=== PATIENT | female | born 1940 | race African-American/Black ===

== ENCOUNTER 2018-05-13 20:16 | Emergency (ER) | payer MEDICARE, OTHER ==
--- NOTE | 2018-05-14 01:31 | RADIOLOGY REPORT (SQ) ---
EXAM DESCRIPTION: CT HEAD WITHOUT IV CONTRAST COMPLETED DATE/TME: 05/14/2018 01:02 CLINICAL HISTORY: 78 years, Female, trauma COMPARISON: None Available. Technique: Contiguous axial images of the brain were obtained without the administration of intravenous contrast. Coronal and sagittal reformats obtained and reviewed. This exam was performed according to our departmental dose-optimization program which includes use of Automated Exposure Control, adjustment of the mA and/or kV according to patient size and/or use of iterative reconstruction technique. Findings: Brain: No hemorrhage. No territorial infarct. No mass effect. No herniation. Ventricles: Within normal limits for patient's age. Bones: No acute osseous abnormality. Paranasal sinuses: Unremarkable. Mastoid air cells: Unremarkable. Soft tissues: Soft tissue swelling and hematoma to the high right parietal scalp.. IMPRESSION: No acute intracranial abnormalities.
--- NOTE | 2018-05-14 01:38 | RADIOLOGY REPORT (SQ) ---
EXAM DESCRIPTION: CT MAXILLOFACIAL WITHOUT IV CONTRAST COMPLETED DATE/TME: 05/14/2018 01:08 CLINICAL HISTORY: 78 years, Female, trauma COMPARISON: None. TECHNIQUE: Axial CT images of the facial bones were obtained without contrast. Sagittal and coronal reformats were performed. DLP 590 Images stored on PACS. All CT scanners at this facility use dose modulation, iterative reconstruction, and/or weight based dosing when appropriate to reduce radiation dose to as low as reasonably achievable (ALARA). [facility]: Dose Right [facility]: CareDose [facility]: Dose Right [facility]: Teradose 4D [facility]: [employer] LIMITATIONS: None. FINDINGS: Subcutaneous: Mild soft tissues swelling along the central forehead Globes: Unremarkable. No retro-orbital hematoma. Orbits: Intact. Mandible: Intact. Maxilla: Intact. Nasal bones/septum: Intact. Zygomatic arches: Intact. Paranasal sinuses: There is mild mucosal thickening of the right maxillary sinus IMPRESSION: No acute fracture or dislocation. TECHNICAL DOCUMENTATION: Quality ID # 436: Final reports with documentation of one or more dose reduction techniques (e.g., Automated exposure control, adjustment of the mA and/or kV according to patient size, use of iterative reconstruction technique) copyright 2010 [employer] [facility]- All Rights Reserved
--- NOTE | 2018-05-14 01:40 | RADIOLOGY REPORT (SQ) ---
CLINICAL HISTORY: trauma COMPARISON: None. TECHNIQUE: XR KNEE 4 OR MORE VIEWS 05/14/2018 1:08 AM CARE TECH FINDINGS: There is no fracture. There is moderate narrowing of the medial knee compartment. There is severe narrowing of the patellofemoral compartment. There is prepatellar and anterior knee soft tissue swelling. IMPRESSION: Anterior soft tissue swelling without fracture.
[2018-05-14] MEDS ORDERED: LIDOCAINE 1%/EPINEPHRINE INJ 20 ML VIAL ONE (03:06)
[2018-05-14] MEDS ORDERED: LIDOCAINE 1%/EPINEPHRINE INJ 20 ML VIAL INJ ONE (03:06)
--- NOTE | 2018-05-14 03:42 | ER Document Report ---
ED General - General Chief Complaint: Fall Stated Complaint: FALL Time Seen by Provider: 05/14/18 01:01 Notes: Patient is a pleasant 78-year-old female presents with complaint of a fall. Patient says that she is always a little bit unsteady on her feet and her legs tend to give out. She said this happened today when she is walking and she fell and hit her head. No loss of consciousness. She is on blood thinners. She has a large cast to her scalp which has had some bleeding. She also at the right side of her face and has some swelling along the right side of her face. She says she has bad knees. She feels that her right nasal bit worse since falling. She was able to stand and walk after the incident. No chest pain. No shortness of breath. No back or neck pain. No other complaints at this time. - Related Data Allergies/Adverse Reactions: No Known Allergies Allergy (Unverified 05/13/18 20:22) Past Medical History - Social History Smoking Status: Unknown if Ever Smoked Chew tobacco use (# tins/day): No Frequency of alcohol use: None Drug Abuse: None Family History: Reviewed & Not Pertinent Patient has suicidal ideation: No Patient has homicidal ideation: No Renal/ Medical History: Denies: Hx Peritoneal Dialysis Review of Systems - Review of Systems Notes: My Normal Review Basic REVIEW OF SYSTEMS: CONSTITUTIONAL : Denies fever, chills, or sweats. Denies recent illness. EENT: laceration to scalp. CARDIOVASCULAR: Denies chest pain. RESPIRATORY: Denies cough, cold, or chest congestion. Denies shortness of breath, difficulty breathing, or wheezing. GASTROINTESTINAL: Denies abdominal pain. Denies nausea, vomiting, or diarrhea. Denies constipation. Last BM: MUSCULOSKELETAL: Right knee pain SKIN: Denies rash or skin lesions. NEUROLOGICAL: Denies altered mental status or loss of consciousness. Denies headache. Denies weakness or paralysis or loss of use of either side. Denies problems with gait or speech. Denies sensory or motor loss. ALL OTHER SYSTEMS REVIEWED AND NEGATIVE. Physical Exam - Vital signs Vitals: Temp Pulse Resp BP Pulse Ox 98.2 F 71 20 146/57 H 98 05/13/18 20:26 05/13/18 20:26 05/13/18 20:26 05/13/18 20:26 05/13/18 20:26 - Notes Notes: General Appearance: Well nourished, alert, cooperative, no acute distress, no obvious discomfort. Vitals: reviewed, See vital signs table. Head: Large 12 cm laceration in a semilunar shape going from the superior aspect of the scalp around down to the right judaism region of the scalp. Eyes: PERRL, EOMI, Conjuctiva clear Mouth: No decreasd moisture Neck: Supple, no neck tenderness, No thyromegaly Lungs: No wheezing, No rales, No rhonci, No accessory muscle use, good air exchange bilaterally. Heart: Normal rate, Regular rythm, No murmur, no rub Abdomen: Normal BS, soft, No rigidity, No abdominal tenderness, No guarding, no rebound, no abdominal masses, no organomegaly Extremities: strength 5/5 in all extremities, good pulses in all extremities, all 4 extremities are nontender except for some increasing swelling some pain to the right knee. She does have good range of motion of the right knee., no edema. Skin: warm, dry, appropriate color, no rash Neuro: speech clear, oriented x 3, normal affect, responds appropriately to questions. Cranial nerves 2 through 12 are intact. Patient is able move all 4 extremities on her own. Course - Re-evaluation Re-evalutation: 05/14/18 08:44 CT scan of the head and face are negative. Knee x-ray is negative. I did irrig ate and clean the wound with peroxide and saline. Wound was gaping and difficult to bring together with warren long therefore I did do for underlying subcutaneous sutures to take tension off the wound. I was then able to apply 12 warren to finish closing the wound. Patient tolerated procedure well. Patient will be discharged home with instructions to return in 1 week first staple remover. She is to return earlier if she has any redness or swelling or increasing pain to the wound. Patient agrees with plan and will be discharged home. Dictation of this chart was performed using voice recognition software; therefore, there may be some unintended grammatical errors. - Vital Signs Vital signs: Temp Pulse Resp BP Pulse Ox 97.9 F 70 20 142/69 H 99 05/14/18 04:32 05/14/18 04:32 05/14/18 04:32 05/14/18 04:32 05/14/18 04:32 Discharge - Discharge Clinical Impression: Laceration Condition: Good Disposition: HOME, SELF-CARE Additional Instructions: LACERATION CARE: Your laceration has been sutured to keep the skin edges aligned during healing. The time of suture removal depends on the nature and location of your cut. Please follow the care instructions the doctor has outlined for you and return for further care, according to the schedule you've been given. Keep the wound and dressing clean. Unless you were told otherwise, you may shower daily, blotting the wound dry with a clean, unused towel. At other times, If the dressing gets wet or blood soaked, remove it and blot the wound dry, then reapply a new dressing. Unless you were instructed otherwise, dr delilah should be changed at least daily. If any signs of infection occur (swelling, redness, drainage, increasing tenderness, red streaks, tender lumps in the armpit or groin above the laceratio n, or fever), see the doctor immediately. FOLLOW-UP CARE: Your sutures should be removed in __7___ days. To facilitate a timely removal of your sutures, you may return [facility]. You do not need to call for an appointment, but the best time to come in for suture removal is early in the morning. If you have been referred to another physician for follow-up care, call that physicians office for an appointment as you were instructed. If you experience a significant change in your laceration, or if you are concerned there may be an infection (swelling, redness, drainage, increasing tenderness, red streaks, tender lumps in the armpit or groin above the laceration, or fever), return to the Emergency Department immediately re-evaluation. You have 12 warren and 4 dissolvable sutures. The warren must be removed in 1 week. Please clean every day with soap and water. Referrals: CORIN YANCEY MD [Primary Care Provider] - Follow up as needed
[2018-05-14 04:33] VITALS: BP 142/69
== END 2018-05-14 04:33 | disposition home or self-care (01) ==
LOC: ER 20:16
DX: S01.01XA Laceration without foreign body of scalp, initial encounter (principal); M25.561 Pain in right knee; M79.89 Other specified soft tissue disorders; W19.XXXA Unspecified fall, initial encounter; Y93.01 Activity, walking, marching and hiking; R26.81 Unsteadiness on feet; Z79.01 Long term (current) use of anticoagulants
CPT/HCPCS: 70450; 70486; 99284

== ENCOUNTER 2018-05-21 05:56 | Emergency (ER) | payer MEDICARE, OTHER ==
[2018-05-21 06:01] VITALS: BP 142/53
--- NOTE | 2018-05-21 06:28 | ER Document Report ---
ED General - General Chief Complaint: Suture Removal Stated Complaint: STITCHES REMOVAL Time Seen by Provider: 05/21/18 06:08 TRAVEL OUTSIDE OF THE [place] IN LAST 30 DAYS: No - HPI Patient complains to provider of: Staple removal Notes: Patient coming in for evaluation of staple removal patient 7 days ago had a fall head internal sutures and warren placed on laceration to the right parietal temporal region. Patient states she has been cleaning the wound daily. Otherwise no other complaints. - Related Data Allergies/Adverse Reactions: No Known Allergies Allergy (Unverified 05/13/18 20:22) Past Medical History - Social History Smoking Status: Unknown if Ever Smoked Family History: Reviewed & Not Pertinent Renal/ Medical History: Denies: Hx Peritoneal Dialysis Review of Systems - Review of Systems Constitutional: Other - Staple removal EENT: No symptoms reported Cardiovascular: No symptoms reported Respiratory: No symptoms reported Gastrointestinal: No symptoms reported Genitourinary: No symptoms reported Female Genitourinary: No symptoms reported Musculoskeletal: No symptoms reported Skin: No symptoms reported Hematologic/Lymphatic: No symptoms reported Neurological/Psychological: No symptoms reported -: Yes All other systems reviewed and negative Physical Exam - Vital signs Vitals: Temp Pulse Resp BP Pulse Ox 97.9 F 62 16 142/53 H 99 05/21/18 06:00 05/21/18 06:00 05/21/18 06:00 05/21/18 06:00 05/21/18 06:00 Interpretation: Normal - General General appearance: Appears well, Alert - HEENT Head: Normocephalic. No: Atraumatic - Multiple warren to the right parietal region well-healed appropriate for removal Eyes: Normal Pupils: PERRL - Respiratory Respiratory status: No respiratory distress Chest status: Nontender Breath sounds: Normal Chest palpation: Normal - Cardiovascular Rhythm: Regular Heart sounds: Normal auscultation Murmur: No - Abdominal Inspection: Normal Distension: No distension Bowel sounds: Normal Tenderness: Nontender Organomegaly: No organomegaly - Back Back: Normal, Nontender - Extremities General upper extremity: Normal inspection, Nontender, Normal color, Normal ROM, Normal temperature General lower extremity: Normal inspection, Nontender, Normal color, Normal ROM, Normal temperature, Normal weight bearing. No: Estrellita's sign - Neurological Neuro grossly intact: Yes Cognition: Normal Orientation: AAOx4 Arron Coma Scale Eye Opening: Spontaneous [place] Coma Scale Verbal: Oriented [place] Coma Scale Motor: Obeys Commands [place] Coma Scale Total: 15 Speech: Normal Motor strength normal: LUE, RUE, LLE, RLE Sensory: Normal - Psychological Associated symptoms: Normal affect, Normal mood - Skin Skin Temperature: Warm Skin Moisture: Dry Skin Color: Normal Course - Re-evaluation Re-evalutation: 05/21/18 06:38 [place] were removed with no complication patient will be discharged home wound care instructions were given to the patient verbally and in written form. - Vital Signs Vital signs: Temp Pulse Resp BP Pulse Ox 97.9 F 62 16 142/53 H 99 05/21/18 06:00 05/21/18 06:00 05/21/18 06:00 05/21/18 06:00 05/21/18 06:00 Discharge - Discharge Clinical Impression: Removal of staple Condition: Good Disposition: HOME, SELF-CARE Instructions: Staple Removal ([facility]) Additional Instructions: Please continue to keep the wound clean and dry. Follow-up with your primary care physician as needed return to the ER for any other concerns. Referrals: CORIN YANCEY MD [Primary Care Provider] - Follow up as needed
== END 2018-05-21 06:50 | disposition home or self-care (01) ==
LOC: ER 05:56
DX: S01.01XD Laceration without foreign body of scalp, subsequent encounter (principal); X58.XXXD Exposure to other specified factors, subsequent encounter

== ENCOUNTER 2018-11-30 13:05 | Emergency (ER) | payer MEDICARE, OTHER ==
--- NOTE | 2018-11-30 14:17 | ER Document Report ---
ED Medical Screen (RME) - General Chief Complaint: Dizziness Stated Complaint: NAUSEA/VOMITING Time Seen by Provider: 11/30/18 14:10 Primary Care Provider: CORIN YANCEY MD [Primary Care Provider] - Follow up as needed Mode of Arrival: Wheelchair Information source: Patient Notes: Patient states she has had a increase in her dizziness and nausea and vomiting for the last 3 days. She has a long history of vertigo. She takes meclizine but this is not helped for the last several days. She was picked up by EMS and given Zofran which she states has helped some but she is still very dizzy. Patient is alert oriented respirations regular and unlabored speaking in full sentences. She states she is also losing weight due to the nausea and vomiting. I have greeted and performed a rapid initial assessment of this patient. A comprehensive ED assessment and evaluation of the patient, analysis of test results and completion of medical decision making process will be conducted by an additional ED providers. Dictation of this chart was performed using voice recognition software; therefore, there may be some unintended grammatical errors. TRAVEL OUTSIDE OF THE [place] IN LAST 30 DAYS: No - Related Data Allergies/Adverse Reactions: lisinopril [From Prinivil] Allergy (Verified 11/30/18 14:01) Past Medical History - Social History Chew tobacco use (# tins/day): No Frequency of alcohol use: None Drug Abuse: None - Past Medical History Cardiac Medical History: Reports: Hx Congestive Heart Failure Endocrine Medical History: Reports: Hx Diabetes Mellitus Type 2 Renal/ Medical History: Denies: Hx Peritoneal Dialysis Past Surgical History: Reports: Hx Orthopedic Surgery Physical Exam - Vital signs Vitals: Temp Pulse Resp BP Pulse Ox 98.1 F 66 14 129/53 H 98 11/30/18 13:55 11/30/18 13:55 11/30/18 13:55 11/30/18 13:55 11/30/18 13:55 Course - Vital Signs Vital signs: Temp Pulse Resp BP Pulse Ox 98.1 F 66 14 129/53 H 98 11/30/18 13:55 11/30/18 13:55 11/30/18 13:55 11/30/18 13:55 11/30/18 13:55 Doctor's Discharge - Discharge Referrals: CORIN YANCEY MD [Primary Care Provider] - Follow up as needed
[2018-11-30 14:52] LABS: ABSOLUTE BASOPHILS # (AUTO) 0.1 10^3/uL (0.0-0.2); ABSOLUTE LYMPHOCYTES (AUTO) 1.2 10^3/uL (0.5-4.7); ABSOLUTE MONOCYTES (AUTO) 0.4 10^3/uL (0.1-1.4); ABSOLUTE NEUT (AUTO) 9.6 10^3/uL (1.7-8.2); BASOPHILS % (AUTO) 0.7 % (0-2); EOSINOPHILS % (AUTO) 0.1 % (0-6); HEMATOCRIT 43.1 % (36.0-47.0); HEMOGLOBIN 14.7 g/dL (12.0-15.5); LYMPHOCYTES % (AUTO) 10.4 % (13-45); MEAN CORPUSCULAR HEMOGLOBIN 29.2 pg (27.0-33.4); MEAN CORPUSCULAR HGB CONC 34.1 g/dL (32.0-36.0); MEAN CORPUSCULAR VOLUME 86 fl (80-97); MONOCYTES % (AUTO) 3.8 % (3-13); PLATELET COUNT 465 10^3/uL (150-450); RED BLOOD COUNT 5.03 10^6/uL (3.72-5.28); RED CELL DISTRIBUTION WIDTH 13.8 % (11.5-14.0); TOTAL CELLS COUNTED % (AUTO) 100 %; WHITE BLOOD COUNT 11.3 10^3/uL (4.0-10.5)
[2018-11-30 15:00] LABS: APPEARANCE,URINE CLEAR; BILIRUBIN,URINE NEGATIVE (NEGATIVE); COLOR,URINE YELLOW; GLUCOSE, URINE NEGATIVE (NEGATIVE); KETONES,URINE TRACE mg/dL (NEGATIVE); LEUKOCYTE ESTERASE,URINE NEGATIVE (NEGATIVE); NITRITE,URINE NEGATIVE (NEGATIVE); PROTEIN,URINE NEGATIVE (NEGATIVE); URINE SPECIFIC GRAVITY 1.013; UROBILINOGEN,URINE NEGATIVE mg/dL (<2.0)
--- NOTE | 2018-11-30 15:07 | RADIOLOGY REPORT (SQ) ---
EXAM DESCRIPTION: CT HEAD WITHOUT COMPLETED DATE/TIME: 11/30/2018 2:52 pm REASON FOR STUDY: Increase in vertigo with nausea and vomiting COMPARISON: 05/14/2018 TECHNIQUE: Axial images acquired through the brain without intravenous contrast. Images reviewed wi th bone, brain and subdural windows. Additional sagittal and coronal reconstructions were generated. Images stored on PACS. All CT scanners at this facility use dose modulation, iterative reconstruction, and/or weight based d osing when appropriate to reduce radiation dose to as low as reasonably achievable (ALARA). [facility]: Dose Right [facility]: CareDose [facility]: Dose Right [facility]: Teradose 4D [facility]: [employer] RADIATION DOSE: 1043 mGy cm LIMITATIONS: None. FINDINGS: VENTRICLES: Normal size and contour. CEREBRUM: No masses. No hemorrhage. No midline shift. No evidence for acute infarction. Few scatte red areas of low density in the white matter most likely chronic small vessel ischemic changes. CEREBELLUM: No masses. No hemorrhage. No alteration of density. No evidence for acute infarction. EXTRAAXIAL SPACES: No fluid collections. No masses. ORBITS AND GLOBE: No intra- or extraconal masses. Normal contour of globe without masses. CALVARIUM: No fracture. PARANASAL SINUSES: No fluid or mucosal thickening. SOFT TISSUES: No mass or hematoma. OTHER: No other significant finding. IMPRESSION: No acute intracranial pathology. Consider MRI to more sensitively evaluate for acute di ffusion restricting infarction if suspected. EVIDENCE OF ACUTE STROKE: NO. COMMENT: Quality ID # 436: Final reports with documentation of one or more dose reduction techniques (e.g., Automated exposure control, adjustment of the mA and/or kV according to patient size, use of iterative reconstruction technique) TECHNICAL DOCUMENTATION: JOB ID: [id number] 2333 [employer]- All Rights Reserved Reading location - IP/workstation name: [email or web address]
[2018-11-30 16:50] LABS: ALANINE AMINOTRANSFERASE 28 U/L (9-52); ALBUMIN 4.5 g/dL (3.5-5.0); ALKALINE PHOSPHATASE 67 U/L (38-126); ANION GAP 13 (5-19); ASPARTATE AMINO TRANSFERASE 24 U/L (14-36); BILIRUBIN,DIRECT 0.2 mg/dL (0.0-0.4); BILIRUBIN,TOTAL 0.7 mg/dL (0.2-1.3); BLOOD UREA NITROGEN 17 mg/dL (7-20); CALCIUM 9.9 mg/dL (8.4-10.2); CARBON DIOXIDE 31 mmol/L (22-30); CHLORIDE 90 mmol/L (98-107); GLUCOSE 120 mg/dL (75-110); TOTAL PROTEIN 7.4 g/dL (6.3-8.2)
--- NOTE | 2018-11-30 20:51 | ER Document Report ---
ED Dizziness/Weakness - General Chief Complaint: Dizziness Stated Complaint: NAUSEA/VOMITING Time Seen by Provider: 11/30/18 14:10 Primary Care Provider: CORIN YANCEY MD [Primary Care Provider] - Follow up as needed Mode of Arrival: Wheelchair Notes: 78-year-old female patient emergency department chief complaint of persistent vertigo. Patient has been seen by her regular doctor. Has been on meclizine as well as a bunch of other medications. Continues to have persistent dizziness. Seems to be worse with movement. Has tried meclizine but states that it makes her want to throw up so has not been taking it. Family members are concerned because she has had weight loss and does not want to eat. Is supposed to have an endoscopy done shortly. Patient denies any chest pain. Denies any shortness of breath. Denies any other major issues at this time. TRAVEL OUTSIDE OF THE [place] IN LAST 30 DAYS: No - HPI Patient complains to provider of: Dizziness, Vertigo Onset/Duration: Gradual, Worse Quality of pain: No pain Severity: Moderate Pain Level: Denies Context: Vertigo Associated symptoms: Nausea, Vertigo, Vomiting, Weak all over - Related Data Allergies/Adverse Reactions: lisinopril [From Prinivil] Allergy (Verified 11/30/18 14:01) Past Medical History - General Information source: Patient - Social History Smoking Status: Never Smoker Chew tobacco use (# tins/day): No Frequency of alcohol use: None Drug Abuse: None Lives with: Family Family History: Reviewed & Not Pertinent Patient has suicidal ideation: No Patient has homicidal ideation: No - Past Medical History Cardiac Medical History: Reports: Hx Congestive Heart Failure Endocrine Medical History: Reports: Hx Diabetes Mellitus Type 2 Renal/ Medical History: Denies: Hx Peritoneal Dialysis Past Surgical History: Reports: Hx Orthopedic Surgery Review of Systems - Review of Systems Notes: Constitutional: denies: Chills, Diaphoresis, -Fever, +Malaise, +Weakness EENT: denies: Eye discharge, Blurred vision, Tearing, Double vision, Nose congestion, Nose discharge, Throat swelling, Mouth pain Cardiovascular: denies: Palpitations, Heart racing, Orthopnea, Dyspnea, Chest pain Respiratory: denies: Cough, Hurts to breathe, Wheezing, Shortness of breath Gastrointestinal: denies: Abdominal pain, Diarrhea, +Nausea, +Vomiting, -Black stools, -bright red blood in stool Genitourinary: denies: Burning, Dysuria, Discharge, Frequency, Flank pain, Hematuria Musculoskeletal: denies: Joint pain, Joint swelling, Muscle pain, Muscle stiffness, back pain Hematologic/Lymphatic: denies: Anemia, Easy bleeding, Easy bruising, Blood clots Neurological/Psychological: denies: Confusion, Dementia, Depression, Loss of consciousness, + diziness Skin: No lesions, no masses, no skin breakdown, no abscesses Physical Exam - Vital signs Vitals: Temp Pulse Resp BP Pulse Ox 98.1 F 66 14 129/53 H 98 11/30/18 13:55 11/30/18 13:55 11/30/18 13:55 11/30/18 13:55 11/30/18 13:55 Interpretation: Normal - General General appearance: Appears well, Alert - HEENT Head: Normocephalic, Atraumatic Eyes: Normal Pupils: PERRL - Respiratory Respiratory status: No respiratory distress Chest status: Nontender Breath sounds: Normal Chest palpation: Normal - Cardiovascular Rhythm: Regular Heart sounds: Normal auscultation Murmur: No - Abdominal Inspection: Normal Distension: No distension Bowel sounds: Normal Tenderness: Nontender Organomegaly: No organomegaly - Back Back: Normal, Nontender - Extremities General upper extremity: Normal inspection, Nontender, Normal color, Normal ROM, Normal temperature General lower extremity: Normal inspection, Nontender, Normal color, Normal ROM, Normal temperature, Normal weight bearing. No: Estrellita's sign - Neurological Neuro grossly intact: Yes Cognition: Normal Orientation: AAOx4 [place] Coma Scale Eye Opening: Spontaneous [place] Coma Scale Verbal: Oriented [place] Coma Scale Motor: Obeys Commands Arron Coma Scale Total: 15 Speech: Normal Motor strength normal: LUE, RUE, LLE, RLE Sensory: Normal Notes: Patient does seem to be more dizzy when she sits up but does not have any nystagmus. - Psychological Associated symptoms: Normal affect, Normal mood - Skin Skin Temperature: Warm Skin Moisture: Dry Skin Color: Normal Course - Re-evaluation Re-evalutation: 11/30/18 20:51 Laboratory 11/30/18 11/30/18 11/30/18 14:30 14:30 14:30 WBC 11.3 H RBC 5.03 Hgb 14.7 Hct 43.1 MCV 86 MCH 29.2 MCHC 34.1 RDW 13.8 Plt Count 465 H Seg Neutrophils % 85.0 H Lymphocytes % 10.4 L Monocytes % 3.8 Eosinophils % 0.1 Basophils % 0.7 Absolute Neutrophils 9.6 H Absolute Lymphocytes 1.2 Absolute Monocytes 0.4 Absolute Eosinophils 0.0 Absolute Basophils 0.1 Sodium Cancelled Potassium Cancelled Chloride Cancelled Carbon Dioxide Cancelled Anion Gap Cancelled BUN Cancelled Creatinine Cancelled Est GFR ( Amer) Cancelled Est GFR (Non-Af Amer) Cancelled Glucose Cancelled Calcium Cancelled Total Bilirubin Cancelled Direct Bilirubin Cancelled Neonat Total Bilirubin Cancelled Neonat Direct Bilirubin Cancelled Neonat Indirect Bili Cancelled AST Cancelled ALT Cancelled Alkaline Phosphatase Cancelled Troponin I Total Protein Cancelled Albumin Cancelled Urine Color YELLOW Urine Appearance CLEAR Urine pH 6.0 Ur Specific Garrett 1.013 Urine Protein NEGATIVE Urine Glucose (UA) NEGATIVE Urine Ketones TRACE H Urine Blood SMALL H Urine Nitrite NEGATIVE Urine Bilirubin NEGATIVE Urine Urobilinogen NEGATIVE Ur Leukocyte Esterase NEGATIVE Urine WBC (Auto) 2 Urine RBC (Auto) 15 U Hyaline Cast (Auto) 6 Squamous Epi Cells Auto <1 Urine Mucus (Auto) FEW Urine Ascorbic Acid NEGATIVE 11/30/18 11/30/18 14:30 16:09 WBC RBC Hgb Hct MCV MCH MCHC RDW Plt Count Seg Neutrophils % Lymphocytes % Monocytes % Eosinophils % Basophils % Absolute Neutrophils Absolute Lymphocytes Absolute Monocytes Absolute Eosinophils Absolute Basophils Sodium 134.0 L Potassium 4.0 Chloride 90 L Carbon Dioxide 31 H Anion Gap 13 BUN 17 Creatinine 0.85 Est GFR ( Amer) > 60 Est GFR (Non-Af Amer) > 60 Glucose 120 H Calcium 9.9 Total Bilirubin 0.7 Direct Bilirubin 0.2 Neonat Total Bilirubin Not Reportable Neonat Direct Bilirubin Not Reportable Neonat Indirect Bili Not Reportable AST 24 ALT 28 Alkaline Phosphatase 67 Troponin I < 0.012 Total Protein 7.4 Albumin 4.5 Urine Color Urine Appearance Urine pH Ur Specific Garrett Urine Protein Urine Glucose (UA) Urine Ketones Urine Blood Urine Nitrite Urine Bilirubin Urine Urobilinogen Ur Leukocyte Esterase Urine WBC (Auto) Urine RBC (Auto) U Hyaline Cast (Auto) Squamous Epi Cells Auto Urine Mucus (Auto) Urine Ascorbic Acid 11/30/18 20:52 Patient does not have any focal neurological deficits. With this persistent dizziness and a negative head CT I am a little more concerned that she could be having a cerebellar infarct. She has also been complaining of loss of appetite and persistent nausea and vomiting. This could be something more sinister. I think she would benefit from an MRI. If this is negative then I think she is fine for an outpatient work-up. Incidentally I did look through her medications. She is a 78-year-old female with no prior heart attack or stroke and she does not know what her lipid level is but she is on a rather strong HMG- CoA reductase inhibitor. I do not think that a 78-year-old woman at this time who is giving me symptoms of myalgias and weakness would have the prolonged benefit of statin therapy in my opinion. I am recommending that she decrease that or stop it altogether. 11/30/18 21:23 11/30/18 22:09 Abdomen X-Ray 11/30/18 00:00 IMPRESSION: Moderate degenerative change in the lumbar spine No evidence of metallic foreign object, with the exception of the zipper which appears to overlie the patient's pelvis, presumably related the patient's pants Head CT 11/30/18 14:15 IMPRESSION: No acute intracranial pathology. Consider MRI to more sensitively evaluate for acute diffusion restricting infarction if suspected. EVIDENCE OF ACUTE STROKE: NO. Head MRI 11/30/18 19:00 IMPRESSION: 1. No acute infarct or other acute intracranial findings 2. Mild atrophy and chronic ischemic white matter changes. 3. No posterior fossa lesions to explain vertigo. 4. No mastoid effusions. - Vital Signs Vital signs: Temp Pulse Resp BP Pulse Ox 98.3 F 66 15 129/53 H 99 11/30/18 19:45 11/30/18 13:55 11/30/18 20:00 11/30/18 13:55 11/30/18 20:00 - Laboratory Result Diagrams: 11/30/18 14:30 11/30/18 16:09 Laboratory results interpreted by me: 11/30/18 11/30/18 11/30/18 14:30 14:30 16:09 WBC 11.3 H Plt Count 465 H Seg Neutrophils % 85.0 H Lymphocytes % 10.4 L Absolute Neutrophils 9.6 H Sodium 134.0 L Chloride 90 L Carbon Dioxide 31 H Glucose 120 H Urine Ketones TRACE H Urine Blood SMALL H - EKG Interpretation by Me EKG shows normal: Sinus rhythm, [place], Intervals, QRS Complexes, ST-T Waves Discharge - Discharge Clinical Impression: Vertigo Condition: Good Disposition: HOME, SELF-CARE Instructions: Vertigo ([facility]), Dizziness ([facility]) Additional Instructions: There was no significant pathology seen on your work-up today. Your sodium was a little low. You may benefit from increasing sodium intake. I am also recommending that you decrease your hydrochlorothiazide (HCTZ) to a half a tablet once a day. Due to your reported myalgias I might recommend that you talk to your doctor about stopping your atorvastatin (lipitor). You are on a maximum dose of Lipitor. At the minimal, I may recommend taking half a tab of the only 3 days a week and see if this will help some your symptoms. You may be able to get off that medication completely. If you have not had a heart attack, you do not have any stents in the coronary arteries, you have not had a stroke and you do not have any significant familial hyperlipidemia then being on this medication at your age may not be beneficial. The side effects may be worse off than the potential protection you are getting from a cardiovascular standpoint. Please have this discussion with your primary care provider or nursing scheduler. In the event that your symptoms are getting worse please follow-up with your regular doctor or return to the emergency department for repeat evaluation. Referrals: CORIN YANCEY MD [Primary Care Provider] - Follow up as needed
--- NOTE | 2018-11-30 21:20 | RADIOLOGY REPORT (SQ) ---
EXAM DESCRIPTION: XR ABDOMEN 2 VIEWS SUPINE ERECT COMPLETED DATE/TME: 11/30/2018 00:00 CLINICAL HISTORY: 78 years ,Female MRI CLEARANCE COMPARISON: None. TECHNIQUE: Two view FINDINGS: Normal alignment and lordosis. Moderate degenerative change in the lower thoracic and lumbar spine. Narrowing the disc interspaces at multiple levels particularly at L2-L3 with subchondral sclerosis and osteophytosis. Vascular calcification in the soft tissues. No evidence to suggest metallic foreign object over the visualized segments of the abdomen or pelvis. 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
[2018-11-30 21:36] LABS: CHOLESTEROL 170.44 mg/dL (0-200); TRIGLYCERIDES 82 mg/dL (<150)
--- NOTE | 2018-11-30 21:38 | RADIOLOGY REPORT (SQ) ---
EXAM DESCRIPTION: [facility]: MR BRAIN WITHOUT IV CONTRAST CLINICAL HISTORY: 78 years Female; severe vertigo for weeks TECHNIQUE: Routine noncontrast MRI brain protocol COMPARISON: CT 11/30/2018 FINDINGS: No diffusion restriction. There are minimal T2 signal changes in the cerebral white matter. No acute edema or mass effect. Mild diffuse atrophy is noted. No hemosiderin deposition. Calvarial marrow is normal. Paranasal sinuses and mastoid air cells are clear. No expansion of the IAC on either side. Normal flow-voids are seen in the major intracranial arteries. IMPRESSION: 1. No acute infarct or other acute intracranial findings 2. Mild atrophy and chronic ischemic white matter changes. 3. No posterior fossa lesions to explain vertigo. 4. No mastoid effusions.
[2018-11-30 21:47] LABS: DIRECT LDL 92 mg/dL (<100)
[2018-11-30 22:45] VITALS: BP 127/56
--- NOTE | 2018-12-01 | EKG REPORT ---
SEVERITY:- ABNORMAL ECG - SINUS RHYTHM NONSPECIFIC T ABNORMALITIES, LATERAL LEADS : Confirmed by: Chilo Beebe 30-Nov-2018 23:59:53
== END 2018-11-30 22:30 | disposition home or self-care (01) ==
LOC: ER 13:05
DX: R42 Dizziness and giddiness (principal); R63.4 Abnormal weight loss; R11.2 Nausea with vomiting, unspecified; R53.1 Weakness; M79.10 Myalgia, unspecified site; M47.9 Spondylosis, unspecified; G31.9 Degenerative disease of nervous system, unspecified; E11.9 Type 2 diabetes mellitus without complications; Z88.8 Allergy status to other drugs, medicaments and biological substances; Z79.899 Other long term (current) drug therapy
CPT/HCPCS: 36415; 70450; 70551; 74019; 80053; 80061; 81001; 84484; 85025; 93005; 93010; 99285